=== PATIENT | female | born 2005 | race Caucasian/White ===

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

== ENCOUNTER 2025-07-18 22:00 | Emergency (ER) | payer OTHER ==
[~2025-07-18] VITALS: Ht 172.7 cm; Wt 95.5 kg
[~2025-07-18 22:00] MED LIST: DEPO150I12 IM
[2025-07-19 00:06] VITALS: BP 134/68; TEMP 99.2; O2SAT 97
== END 2025-07-19 00:17 | disposition home or self-care (01) ==
LOC: M ED 22:00
DX: S60.222A Contusion of left hand, initial encounter (principal); W20.8XXA Other cause of strike by thrown, projected or falling object, initial encounter; Z88.0 Allergy status to penicillin; Z91.040 Latex allergy status; Y92.009 Unspecified place in unspecified non-institutional (private) residence as the place of occurrence of the external cause; Y93.89 Activity, other specified; Y99.9 Unspecified external cause status